=== PATIENT | female | born 1980 | race Asian ===

== ENCOUNTER 2017-03-05 08:47 | Emergency (ER) | payer OTHER ==
[~2017-03-05] VITALS: Ht 160 cm; Wt 99.8 kg
[2017-03-05 09:00] VITALS: BP 170/98; TEMP 98.9
== END 2017-03-05 09:55 | disposition home or self-care (01) ==
LOC: ED 08:47
DX: R11.2 Nausea with vomiting, unspecified (principal); R19.7 Diarrhea, unspecified
CPT/HCPCS: 99282

== ENCOUNTER 2020-03-19 14:24 | Emergency (ER) | payer BC ==
[~2020-03-19] VITALS: Ht 162.6 cm; Wt 147.9 kg
[2020-03-19 14:28] VITALS: TEMP 98.7
[2020-03-19 15:17] LABS: PLATELET COUNT 273 K/uL (152-353)
[2020-03-19 15:23] LABS: POTASSIUM 3.5 mmol/L (3.6-5.2); SODIUM 140 mmol/L (136-145)
[2020-03-19 18:30] VITALS: BP 151/98
== END 2020-03-19 18:35 | disposition home or self-care (01) ==
LOC: ED 14:24
PROVIDERS: Family Medicine
DX: R07.89 Other chest pain (principal); I10 Essential (primary) hypertension; E87.6 Hypokalemia
CPT/HCPCS: 80053; 81000; 81025; 82550; 84484; 85027; 93005; 99284

== ENCOUNTER 2021-04-08 13:47 | Emergency (ER) | payer OTHER ==
[~2021-04-08] VITALS: Ht 162.6 cm; Wt 147.9 kg
[2021-04-08 13:52] VITALS: TEMP 98
[2021-04-08 16:28] VITALS: BP 151/90
== END 2021-04-08 16:18 | disposition home or self-care (01) ==
LOC: ED 13:47
DX: S29.012A Strain of muscle and tendon of back wall of thorax, initial encounter (principal); M51.26 Other intervertebral disc displacement, lumbar region; M51.36 Other intervertebral disc degeneration, lumbar region; V89.2XXA Person injured in unspecified motor-vehicle accident, traffic, initial encounter; Y92.89 Other specified places as the place of occurrence of the external cause
CPT/HCPCS: 96374; 96375; 99284; J0360; J1885

== ENCOUNTER 2021-05-24 19:19 | Emergency (ER) | payer OTHER ==
[~2021-05-24] VITALS: Ht 162.6 cm; Wt 140.2 kg
[2021-05-25 00:50] VITALS: BP 142/98; TEMP 100.1
== END 2021-05-25 00:50 | disposition home or self-care (01) ==
LOC: ED 19:19
DX: J32.8 Other chronic sinusitis (principal); J40 Bronchitis, not specified as acute or chronic; B34.9 Viral infection, unspecified; U07.1 COVID-19
CPT/HCPCS: 81025; 87635; 87651; 99283; J1885; U0003

== ENCOUNTER 2021-09-13 21:59 | Emergency (ER) | payer OTHER ==
[~2021-09-13] VITALS: Ht 162.6 cm; Wt 145.2 kg
[2021-09-13 23:25] VITALS: BP 171/81; TEMP 98.1
== END 2021-09-14 01:34 | disposition home or self-care (01) ==
LOC: ED 21:59
DX: M25.572 Pain in left ankle and joints of left foot (principal); M79.672 Pain in left foot
CPT/HCPCS: 96372; 99282; J1885

== ENCOUNTER 2021-10-11 15:49 | Emergency (ER) | payer OTHER ==
[~2021-10-11] VITALS: Ht 162.6 cm; Wt 145.2 kg
[2021-10-11 16:24] VITALS: TEMP 97
[2021-10-11 17:14] VITALS: BP 152/82
== END 2021-10-11 17:15 | disposition home or self-care (01) ==
LOC: ED 15:49
DX: Z20.822 Contact with and (suspected) exposure to COVID-19 (principal); I10 Essential (primary) hypertension; F17.290 Nicotine dependence, other tobacco product, uncomplicated
CPT/HCPCS: 87635; 99282; U0003

== ENCOUNTER 2022-01-21 15:46 | Observation (INO) | payer OTHER ==
[~2022-01-21] VITALS: Ht 162.6 cm; Wt 130.7 kg
[2022-01-21 16:27] LABS: PLATELET COUNT 260 K/uL (152-353)
[2022-01-21 16:32] VITALS: BP 150/80; TEMP 98.8; Ht 162.6 cm; Wt 130.7 kg
[2022-01-21 16:49] LABS: PARTIAL THROMBOPLASTIN TIME 25.4 SECONDS (24.5-33.6)
[2022-01-21 17:53] LABS: POTASSIUM 3.4 mmol/L (3.6-5.2)
[2022-01-21 19:50] VITALS: BP 139/83; TEMP 98.6
[2022-01-21 23:53] VITALS: BP 131/77; TEMP 98.8
[2022-01-22 04:08] VITALS: BP 150/91; TEMP 97.9
[2022-01-22 06:54] LABS: PLATELET COUNT 213 K/uL (152-353)
[2022-01-22 07:03] LABS: POTASSIUM 3.7 mmol/L (3.6-5.2)
[2022-01-22 08:00] VITALS: BP 132/73; TEMP 98.1
[2022-01-22 12:00] VITALS: BP 154/86; TEMP 98.6
== END 2022-01-22 15:10 | disposition home or self-care (01) ==
LOC: MED/SURG 15:46
PROVIDERS: ADMIT Family Medicine; ATTEND Family Medicine
DX: R07.89 Other chest pain (principal); I10 Essential (primary) hypertension
CPT/HCPCS: 36415; 80053; 80307; 81000; 82150; 82550; 83690; 83735; 84100; 84484; 85027; 85610; 85730; 87635; 93005; 96365; 96372; 99220; G0378; G0379; J1650; J3475; U0003

== ENCOUNTER 2022-03-09 15:24 | Outpatient (CLI) | payer OTHER ==
[2022-03-09 15:59] LABS: PLATELET COUNT 256 K/uL (152-353)
[2022-03-09 16:03] LABS: POTASSIUM 3.5 mmol/L (3.6-5.2)
== END 2022-03-09 19:04 | disposition home or self-care (01) ==
LOC: LABW 15:24
PROVIDERS: ATTEND Nurse Practitioner Family
DX: R10.11 Right upper quadrant pain (principal); M54.50 Low back pain, unspecified
CPT/HCPCS: 36415; 80053; 81000; 82150; 83690; 85027

== ENCOUNTER 2022-04-17 15:35 | Outpatient (CLI) | payer OTHER ==
[~2022-04-17] VITALS: Ht 163.8 cm; Wt 132.0 kg
--- NOTE | 2022-04-17 16:33 | NUR ---
1607 PT AMBULATED TO ROOM 1126 FOR OP INFUSION VS OBTAINED. 22G PIV TO RAC X1 ATTEMPT. PT TOLERATED WELL WITH NO COMPLAINTS 1625 BEBTELOVIMAB IVP OVER 30 SECONDS FOLLOWED BY 10 ML NS FLUSH. PT TOLERATED WITH NO COMPLICATIONS
[2022-04-17 16:40] VITALS: BP 135/81; TEMP 98.1
[2022-04-17 16:55] VITALS: BP 136/80; TEMP 98
[2022-04-17 17:25] VITALS: BP 140/86; TEMP 98.4
--- NOTE | 2022-04-17 17:33 | NUR ---
ALL VS TAKEN AND WNL POST INFUSION. SL TO RT AC DC'D PER ROUTINE SITE CARE. PT DENIES ANY PROBLEMS OR CO. PT LEFT AMBUALTORY AT THIS TIME.
== END 2022-04-17 23:40 | disposition home or self-care (01) ==
LOC: INF 15:35
PROVIDERS: ATTEND Family Medicine
DX: Z23 Encounter for immunization (principal); U07.1 COVID-19
CPT/HCPCS: 96374; Q0222

== ENCOUNTER 2023-01-25 11:12 | Outpatient (CLI) | payer OTHER | END 2023-01-25 20:40 | disposition home or self-care (01) | LOC: LABW 11:12 | PROVIDERS: ATTEND Nurse Practitioner Primary Care | DX: N92.5 Other specified irregular menstruation (principal) | CPT/HCPCS: 36415; 84702 ==